=== PATIENT | male | born 1955 | race Caucasian/White ===

== ENCOUNTER 2020-01-16 07:48 | Day surgery (SDC) | payer MEDICARE ==
[~2020-01-16] VITALS: Ht 175.3 cm; Wt 114.3 kg
[~2020-01-16 07:48] MED LIST: ALBUTEROL SUL0.083 % IN; ARNUITY EL50 MCG/ACT; AZELASTINE0.1 %; CRESTOR10 MG PO; IPRATROPIU0.5 MG/3 M IN; L-LYSINE500 M2 PO; LANSOPRAZOLE30 MG PO; MAG PO; MICARDIS40 MG PO; MUPIROCIN2 % EX; TRELEGY ELLIPTA1 AER IN; VIRTUSSIN AC PO; [UNRECOGNIZED DRUG - OTHER] PO
[2020-01-16 09:27] VITALS: BP 114/61
== END 2020-01-16 09:50 | disposition home or self-care (01) ==
LOC: ENDO 07:48
PROVIDERS: ATTEND Surgery
PROC: 0DJD8ZZ Inspection of Lower Intestinal Tract, Via Natural or Artificial Opening Endoscopic (ICD-10-PCS; principal; 2020-01-16)
DX: Z12.11 Encounter for screening for malignant neoplasm of colon (principal); K57.30 Diverticulosis of large intestine without perforation or abscess without bleeding; K62.9 Disease of anus and rectum, unspecified; I10 Essential (primary) hypertension; Z11.59 Encounter for screening for other viral diseases